=== PATIENT | female | born 1980 | race Caucasian/White ===

== ENCOUNTER 2017-02-01 07:46 | Emergency (ER) | payer MEDICAID ==
[2012-07-07 06:58] VITALS: BMI 30.1
== END 2017-02-01 09:37 | disposition home or self-care (01) ==
LOC: D.ER 07:46
DX: N76.0 Acute vaginitis (principal); M32.9 Systemic lupus erythematosus, unspecified; F17.200 Nicotine dependence, unspecified, uncomplicated

== ENCOUNTER 2017-02-18 16:38 | Emergency (ER) | payer MEDICAID | END 2017-02-18 21:38 | disposition home or self-care (01) | LOC: D.ER 16:38 | DX: N76.0 Acute vaginitis (principal); F17.200 Nicotine dependence, unspecified, uncomplicated; M32.9 Systemic lupus erythematosus, unspecified ==

== ENCOUNTER 2017-02-20 14:40 | Emergency (ER) | payer MEDICAID ==
[2012-07-07 06:58] VITALS: BMI 30.1
== END 2017-02-20 17:37 | disposition home or self-care (01) ==
LOC: D.ER 14:40
DX: N76.0 Acute vaginitis (principal); F17.200 Nicotine dependence, unspecified, uncomplicated